=== PATIENT | female | born 1960 | race Caucasian/White ===

== ENCOUNTER 2017-06-13 13:07 | Emergency (ER) | payer BC ==
[2017-06-13 15:53] VITALS: BP 136/80
[2017-06-13] MEDS ORDERED: Cyclobenzaprine TAB* 10 MG PO ONE (16:42)
[2017-06-13] MEDS ORDERED: predniSONE TAB* 10 MG PO ONE (16:43)
--- NOTE | 2017-06-13 16:52 | ED ---
Lower Extremity - HPI Summary HPI Summary: 56 female presents with complaints of right hamstring pain after slipping on some wet concrete today around 11:30am. Patient states she landed with her right leg straight out, over stretching it. Patient did not hear any popping or tearing however was very sore afterwards. Pain is worse with movement, sitting and straightening her right lower extremity. Laying straight makes the pain better. Describes as a dull ache. Is able to bear weight however it causes her pain. Has only taken meloxicam for pain, as she takes it daily. Had little relief. Denies hitting her head and LOC. No other complaints at this time. Denies swelling, bruising and obvious deformities. No PMHx besides gastric bypass and osteoarthritis. Denies hip and knee pain. - History of Current Complaint Chief Complaint: EDExtremityLower Stated Complaint: FALL/RT LEG PAIN Time Seen by Provider: 06/13/17 16:24 Hx Obtained From: Patient Mechanism Of Injury: Twisted - stretched, slipped Onset of Pain: Minutes Onset/Duration: Hours Severity Initially: Moderate Severity Currently: Moderate Pain Intensity: 8 Pain Scale Used: 0-10 Numeric Timing: Constant - worse with certain movement and position Location: Is Discrete @ - posterior right leg, hamstring Character Of Pain: Dull, Aching Associated Signs And Symptoms: Positive: Negative Aggravating Factor(s): Standing, Ambulation, Weight Bearing Alleviating Factor(s): Rest Able to Bear Weight: Yes - Allergies/Home Medications Allergies/Adverse Reactions: Allergies Allergy/AdvReac Type Severity Reaction Status Date / Time Cefaclor [From Ceclor] Allergy Nausea Verified 01/09/16 10:09 Erythromycin Allergy Nausea Verified 01/09/16 10:09 PMH/Surg Hx/FS Hx/Imm Hx Endocrine/Hematology History: Denies: Hx Diabetes Cardiovascular History: Denies: Hx Hypertension, Hx Pacemaker/ICD GI History: Reports: Other GI Disorders - gastric bypass patient History: Denies: Hx Renal Disease Musculoskeletal History: Reports: Hx Arthritis Sensory History: Denies: Hx Hearing Aid Psychiatric History: Reports: Hx Panic Disorder - ANXIETY - Cancer History Hx Chemotherapy: No Hx Radiation Therapy: No - Surgical History Surgery Procedure, Year, and Place: GASTRIC BYPASS 2005,TWISTED BOWEL/HERNIATED INTESTINES 2006,TUMMY TUCK MANY YEARS AGO,1982 ECTOPIC - Immunization History Immunizations Up to Date: Yes Infectious Disease History: No Infectious Disease History: Denies: Traveled Outside the [place] in Last 30 Days - Family History Known Family History: Positive: None - Social History Alcohol Use: Rare Substance Use Type: Reports: None Smoking Status (MU): Former Smoker Review of Systems Constitutional: Negative Cardiovascular: Negative Respiratory: Negative Gastrointestinal: Negative Positive: Arthralgia, Myalgia, Decreased ROM - right lower extremity Skin: Negative Neurological: Negative All Other Systems Reviewed And Are Negative: Yes Physical Exam Triage Information Reviewed: Yes Vital Signs On Initial Exam: Initial Vitals Temp Pulse Resp BP Pulse Ox 96.9 F 88 16 186/93 99 06/13/17 13:09 06/13/17 13:09 06/13/17 13:09 06/13/17 13:09 06/13/17 13:09 Vital Signs Reviewed: Yes Appearance: Positive: Well-Appearing, Well-Nourished, Pain Distress - moderate with movement of RLE Skin: Positive: Warm, Skin Color Reflects Adequate Perfusion, Dry, Other - no edema, ecchymosis or obvious deformity noted. Negative: Cold, Numb, Soft, Pale , Erythema @ Head/Face: Positive: Normal Head/Face Inspection Eyes: Positive: Conjunctiva Clear ENT: Positive: Hearing grossly normal Neck: Positive: Supple, Nontender Respiratory/Lung Sounds: Positive: Clear to Auscultation, Breath Sounds Present. Negative: Rales, Rhonchi, Wheezes Cardiovascular: Positive: Normal, RRR, Pulses are Symmetrical in both Upper and Lower Extremities - 2+ pedal b/l. Negative: Murmur, Rub Musculoskeletal: Positive: Strength/ROM Intact - right lower extremity able but painful and moves slowly, worse with extension of right knee and hip, sitting better with passive ROM, Pain @ - right hamstring under right buttock, no bony tenderness. Negative: Interruption @, Edema Left, Edema Right, Other - no ecchymosis edema or obvious deformity, no crepitus or step off Neurological: Positive: Normal, Sensory/Motor Intact - sensation intact, Alert, Oriented to Person Place, Time, CN Intact II-III, Reflexes Intact, NV Bundle Intact Distally, Abnormal Gait - limping and favoring left lower extremity due to pain or RLE however able Psychiatric: Positive: Affect/Mood Appropriate Diagnostics - Vital Signs Vital Signs Temp Pulse Resp BP Pulse Ox 06/13/17 16:13 97.8 F 100 16 136/80 100 06/13/17 15:51 97.8 F 100 16 136/80 99 06/13/17 13:09 96.9 F 88 16 186/93 99 - Laboratory Lab Statement: Any lab studies that have been ordered have been reviewed, and results considered in the medical decision making process. Lower Extremity Course/Dx - Course Course Of Treatment: due to ROBERTO and PE findings did not appear to need imaging at this time. already took meloxicam today so no further NSAID was given, patient unknown dose. She states she has sensitivities to narcotic pain medication as it suppresses her respiratory drive therefore did not want additional pain management at this time. Given muscle relaxer and steroid in ED and continue at home. Heat/ice. RICE. Follow up pcp and possibly ortho if symptoms persist. Aware of worsening signs and symptoms to watch out for and to return for. - Diagnoses Differential Diagnosis/HQI/PQRI: Positive: Contusion, Dislocation, Sprain, Strain Provider Diagnoses: Muscle strain of right lower extremity Discharge - Discharge Plan Condition: Stable Disposition: HOME Patient Education Materials: Hamstring Injury (ED), Muscle Strain (ED) Referrals: Jemal Brown, [employer] [Primary Care Provider] - Additional Instructions: Continue taking meloxicam as directed for pain and inflammation. Take muscle relaxer and short course steroid as directed. Rest, elevate and apply ice/heat as directed. If symptoms persist, worsen or do not improve please see medical attention. This may take weeks to heal completely.
== END 2017-06-13 17:15 | disposition home or self-care (01) ==
LOC: ED 13:07
DX: S86.911A Strain of unspecified muscle(s) and tendon(s) at lower leg level, right leg, initial encounter (principal); M79.604 Pain in right leg; W19.XXXA Unspecified fall, initial encounter; Y93.9 Activity, unspecified; Y92.9 Unspecified place or not applicable; Z87.891 Personal history of nicotine dependence
CPT/HCPCS: 99282; A9270-GY; J7512